=== PATIENT | female | born 2000 | race Two or more races ===

== ENCOUNTER 2025-01-30 18:44 | Emergency (ER) | payer MEDICAID, SELFPAY ==
[2025-01-30 18:44] VITALS: BMI 28.1
[2025-01-30 19:22] VITALS: BP 128/74; PULSE 79; RESP 18; TEMP 37.1; O2SAT 99
--- NOTE | 2025-01-30 19:33 | PD.EDRME ---
Rapid Medical Screening Exam RME Arrival date/time: 01/30/25 18:44 Chief Complaint: Dizziness Time Seen by Provider: 01/30/25 19:00 Vital signs: Vital Signs Temperature 98.8 F 01/30/25 19:22 Pulse Rate 79 01/30/25 19:22 Respiratory Rate 18 01/30/25 19:22 Blood Pressure 128/74 01/30/25 19:22 Pulse Oximetry (%) 99 01/30/25 19:22 Oxygen Delivery Method Room Air 01/30/25 19:22 RME Narrative: lightheadedness x2 days. 11 weeks ob. No pelvic pain or vaginal bleeding.
--- NOTE | 2025-01-30 19:34 | EKG_ITS ---
[facility] (Formerly [facility]) Test Date: 2025-01-30 Pat Name: JOHN RODRIGUEZ Department: Room: - Gender: Female [employer] Records Clerk: : 2000 Requested By: Linus Larson Order Number: [id number] Reading MD: Linus Larson Measurements Intervals [place] Rate: 71 P: 40 NE: 140 QRS: 44 QRSD: 82 T: 13 QT: 396 QTc: 432 Interpretive Statements SINUS RHYTHM No previous ECG available for comparison /store/S0/[id number]/[id number].pdf
[2025-01-30 20:04] LABS: Basophils # (Auto) 0.0 Thou/mm3 (0.0-0.2); Basophils % (Auto) 0 % (0-2.5); Eosinophils # (Auto) 0.2 Thou/mm3 (0.0-0.5); Eosinophils % (Auto) 2 % (0-10); Hematocrit 37.7 % (36.0-46.0); Hemoglobin 13.1 g/dL (12.0-16.0); Immature Granulocytes Auto 0.04 Thou/mm3 (0.00-0.00); Lymphocytes # (Auto) 2.0 Thou/mm3 (1.0-4.8); Lymphocytes % (Auto) 17 % (10-50); Mean Corpuscular HGB Conc 34.7 g/dl (31.0-37.0); Mean Corpuscular Hemoglobin 31.1 pg (25.0-35.0); Mean Corpuscular Volume 90 fL (80-100); Monocytes # (Auto) 0.6 Thou/mm3 (0.0-0.8); Monocytes % (Auto) 5 % (0-12); Neutrophils # (Auto) 9.1 Thou/mm3 (1.8-7.7); Neutrophils % (Auto) 76 % (37-80); Nucleated Red Blood Cell # 0.00 Thou/mm3 (0.00-0.00); Nucleated Red Blood Cell % 0 /100 WBC (0); Platelet Count 147 Thou/mm3 (140-440); RDW Standard Deviation 38.9 fL (36.4-46.3); Red Blood Count 4.21 Miln/mm3 (4.00-5.20); White Blood Count 11.9 Thou/mm3 (3.6-11.0)
[2025-01-30 20:31] LABS: Alanine Aminotransferase 24 U/L (10-49); Albumin, Serum 4.7 gm/dL (3.5-5.0); Albumin/Globulin Ratio 1.5 (1.2-2.2); Alkaline Phosphatase 53 U/L (46-116); Anion Gap 11 (7-16); Aspartate Amino Transferase 21 U/L (0-34); BUN/Creatinine Ratio 7 Ratio (12-20); Bilirubin,Total 0.9 mg/dL (0.3-1.2); Blood Urea Nitrogen < 5 mg/dL (9-23); Calcium 9.8 mg/dL (8.3-10.6); Calcium (Corrected) 9.8 mg/dL (8.5-10.1); Carbon Dioxide 22.5 mMol/L (20.0-31.0); Chloride 104 mMol/L (98-107); Creatinine (Component) 0.7 mg/dL (0.6-1.3); Estimated Creatinine Clearance 135.0 mL/min (>60); Globulin 3.2 gm/dL (2.3-3.5); Glucose 81 mg/dL (74-106); Osmolality,Calculated 270 (275-295); Potassium 3.9 mMol/L (3.4-5.1); Sodium 137 mMol/L (136-145); Total Protein 7.9 gm/dL (5.7-8.2); Troponin I < 0.002 ng/mL (0.0-0.045); eGFR > 60 See Note
[2025-01-30 20:59] LABS: Beta HCG,Quantitative 58208 mIU/mL (<5.0)
[2025-01-30 21:16] LABS: Collection Type, Urine Clean Catch; Squamous Epithelial Cell,Urine 0 /hpf (0-5)
[2025-01-30 21:26] LABS: Bilirubin,Urine Negative (Negative); Blood,Urine Negative (Negative); Clarity,Urine Clear (Clear/Hazy); Color,Urine Lt-Yellow (Lt Yel-Yel); Glucose, Urine Negative (Negative); Ketones,Urine Negative (Negative); Leukocyte Esterase,Urine Negative (Negative); Nitrite,Urine Negative (Negative); PH,Urine 6.0 (5.0-7.0); Protein,Urine Negative (Neg - Trace); RBC,Urine 1 /hpf (0-3); Specific Gravity,Urine 1.010 (1.001-1.035); Urobilinogen,Urine Negative mg/dL (0.0-1.0); WBC,Urine < 1 /hpf (0-5)
[2025-01-30 21:36] LABS: HCG Qualitative,Urine Negative
[2025-01-30 23:08] VITALS: BP 123/72; PULSE 74; RESP 16; TEMP 37.1; O2SAT 100
--- NOTE | 2025-01-30 23:13 | EDNOTE_ITS ---
ED Dizzyness RME/HPI General Chief Complaint: Dizziness Stated Complaint: 11WK PREG WITH DIZZINESS X2D Time Seen by Provider: 01/30/25 19:00 Arrival date/time: 01/30/25 18:44 RME / HPI RME / HPI Narrative: lightheadedness x2 days. 11 weeks ob. No pelvic pain or vaginal bleeding. DR. ANG MAIN ED EVALUATION: 24 y/o female EGA 11 weeks presents with lightheadedness x 2 days. Patient reports taking ABX approximately 2 weeks ago for dental infection and is pending RCT once she reaches EGA of 4 months. Related Data Previous Rx's ?Medication ?Instructions ?Recorded ibuprofen 600 mg tablet 600 mg PO Q6H #30 tabs 09/20 Allergies Allergy/AdvReac Type Severity Reaction Status Date / Time NKA* Allergy Uncoded 01/30/25 18:47 Review of Systems Review of Systems Systems Reviewed: All systems reviewed, normal except as documented ED Exam Narrative Physical exam: Generally patient is alert and in no obvious distress, heart regular rate and rhythm without murmur, lungs clear to auscultation equal bilaterally, abdomen soft bowel sounds present's and nontender, eyes pupils equal round reactive to light with extraocular movements intact. No vertical nystagmus. Neurologic exam Glascow coma scale 15 without focal motor deficits. No ataxia. Course Quality Measures none Orders Category Date Time Status EKG (ED ONLY) *Do not use* NOW Care 01/30/25 19:34 Completed EKG (ED Only) Stat Exams 01/30/25 19:34 Draft Beta HCG,Quantitative Stat Lab 01/30/25 19:54 Completed CBC Stat Lab 01/30/25 19:54 Completed CMP [Comprehensive Metabolic Panel] Stat Lab 01/30/25 19:54 Completed HCG Qualitative,Urine Stat Lab 01/30/25 21:00 Completed Troponin I Stat Lab 01/30/25 19:54 Completed UA [Urinalysis] Stat Lab 01/30/25 21:00 Completed Vital Signs Vital signs: Vital Signs Temperature 98.8 F 01/30/25 19:22 Pulse Rate 79 01/30/25 19:22 Respiratory Rate 18 01/30/25 19:22 Blood Pressure 128/74 01/30/25 19:22 Pulse Oximetry (%) 99 01/30/25 19:22 Oxygen Delivery Method Room Air 01/30/25 19:22 Dizziness [facility] Narrative [facility] Narrative:: Scribe Attestation: I, Princess Lerma, am scribing for and in the presence of Dr. Ang. Provider Notation: Although this document has been carefully reviewed, there may still be some phonetic and other typographical errors. These errors are purely grammatical due to imperfections in the software program and should not be construed in any way to compromise the substance of the patient's medical care during this visit. I interpreted all labs. There is no anemia. No renal dysfunction. No electrolyte abnormality. Urine is not infected. Patient was counseled on the need to stay well-hydrated. Follow-up with her [employer] physician. Return to ER as needed or if condition worsens. EKG did show normal sinus rhythm at a rate of 71 without ectopy. Normal intervals. Patient data External records reviewed:: [facility] previous records (Reviewed prior ED records from 09/21/23. Patient was seen for Contusion of hand, right.) Clinical information provided by:: patient Social determinants that could affect healthcare access:: none Patient has the following chronic illnesses:: None reported How is presenting disease/condition affected by chronic disease/condition?: no chronic disease Evaluation data The following diagnostics were reviewed and interpreted by me:: lab results and EKG tracing(s) Lab and/or radiology exams considered but not ordered:: None Interpretation Summary: See MDM above Medications / Prescriptions Medications or Prescriptions considered but not ordered:: None Medication administrations:: See above if any Consultations Consultation(s) initiated? (list below): No Diagnosis Dizziness Differential Diagnosis: benign paroxysmal positional vertigo, orthostatic hypotension, vertebral basilar insufficiency, acute vestibular neuronitis and other (Hypotension, Hypoglycemia, DEONNA) Most likely diagnosis given after review of the tests above:: none Admission Indicated Admission indicated?: not indicated Explain why admission is indicated or not indicated:: Patient does not meet admission criteria Admission Request Was there a request for admission?: No Disposition Plan Disposition Plan: Discharge Discharge Attestation Discharge Attestation: The patient and all family members were given an opportunity to ask questions and understood the discharge instructions. Discharge instructions specifically effects, indications for sooner follow up or return to the emergency department, and the expected course of current diagnosis. Patient condition: Stable Discharge Plan Plan Patient Disposition: HOME (Self Care) Prescriptions/Referrals Prescriptions/Med Rec: No Action ibuprofen 600 mg tablet 600 mg PO Q6H Qty: 30 0RF Referrals: Krishan Ya MD [Primary Care Provider, Family Practice] - In 1 week Problem List Clinical Impression: Dizziness, Patient/Caregiver Discharge Instructions Additional Instructions: Keep well-hydrated. Follow-up with your [employer] physician. Return to ER as needed or if condition worsens. Print Language: Hebrew Stand Alone Forms: Yesenia Award Info., Patient Portal Info Letter
== END 2025-01-30 23:33 | disposition home or self-care (01) ==
PROVIDERS: Physician Assistant; Emergency Provider Emergency Medicine; PCP Family Medicine
DX: O99.891 Other specified diseases and conditions complicating pregnancy (principal); R42 Dizziness and giddiness; Z3A.11 11 weeks gestation of pregnancy
CPT/HCPCS: 36415; 80053; 81001; 81025; 84484; 84702; 85025; 93005; 99283